=== PATIENT | female | born 2000 | race Two or more races ===

== ENCOUNTER → 2024-05-07 | Outpatient (CLI) | payer OTHER, SELFPAY ==
--- NOTE | 2024-05-07 14:45 | XR_ITS ---
Examination: Fingers, right hand third digit 3 views Technique: AP, oblique, lateral views right hand third digit 3 views. Exam date and time: May 07, 2024 1455 hours INDICATIONS: Injury to the hand today with third digit pain FINDINGS: No acute fracture No dislocation No foreign body IMPRESSION: No acute fracture
== END | disposition home or self-care (01) ==
PROVIDERS: PCP Family Medicine; Referring Provider Nurse Practitioner Family; Visit Provider Nurse Practitioner Family
DX: S60.031A Contusion of right middle finger without damage to nail, initial encounter (principal); X58.XXXA Exposure to other specified factors, initial encounter
CPT/HCPCS: 73140